=== PATIENT | female | born 2000 | race Two or more races ===

== ENCOUNTER → 2023-10-24 | Outpatient (CLI) | payer OTHER ==
[2023-10-24 14:27] LABS: HEMATOCRIT 39.3 % (36.0-47.0); HEMOGLOBIN 13.2 g/dl (12.0-15.5); MEAN CORPUSCULAR HEMOGLOBIN 28.8 pg (27.0-33.0); MEAN CORPUSCULAR HGB CONC 33.6 g/dl (32.0-36.5); MEAN CORPUSCULAR VOLUME 85.6 fl (80.0-96.0); PLATELET COUNT, AUTOMATED 298 10^3/uL (150-450); RED BLOOD COUNT 4.59 10^6/uL (4.00-5.40); WHITE BLOOD COUNT 9.9 10^3/uL (4.0-10.0)
[2023-10-24 14:48] LABS: HEMOGLOBIN A1c 5.2 % (4.0-6.0)
[2023-10-24 15:05] LABS: HIV 1&2 SCREEN NEGATIVE (NEGATIVE)
[2023-10-24 15:13] LABS: HEPATITIS C VIRUS ABY INDEX 0.04 INDEX (<0.8)
== END ==
LOC: M PLALAB 11:36
PROVIDERS: ATTEND Advanced Practice Midwife
DX: Z34.81 Encounter for supervision of other normal pregnancy, first trimester (principal)

== ENCOUNTER → 2023-11-23 | Outpatient (CLI) | payer OTHER | LOC: M WHC 10:24 | PROVIDERS: ATTEND Obstetrics & Gynecology | DX: Z34.92 Encounter for supervision of normal pregnancy, unspecified, second trimester (principal) ==

== ENCOUNTER → 2023-12-21 | Outpatient (CLI) | payer OTHER | LOC: M WHC 10:34 | PROVIDERS: ATTEND Obstetrics & Gynecology | DX: Z34.92 Encounter for supervision of normal pregnancy, unspecified, second trimester (principal); Z3A.19 19 weeks gestation of pregnancy ==

== ENCOUNTER → 2024-02-05 | Outpatient (CLI) | payer OTHER ==
[2024-02-05 19:37] LABS: HEMATOCRIT 34.2 % (36.0-47.0); HEMOGLOBIN 11.3 g/dl (12.0-15.5); MEAN CORPUSCULAR HEMOGLOBIN 29.9 pg (27.0-33.0); MEAN CORPUSCULAR VOLUME 90.5 fl (80.0-96.0); PLATELET COUNT, AUTOMATED 283 10^3/uL (150-450); RED BLOOD COUNT 3.78 10^6/uL (4.00-5.40); WHITE BLOOD COUNT 10.1 10^3/uL (4.0-10.0)
[2024-02-05 21:39] LABS: GC DNA AMPLIFICATION NEGATIVE (NEGATIVE)
== END ==
LOC: M WUC 14:32
PROVIDERS: ATTEND Advanced Practice Midwife
DX: Z34.92 Encounter for supervision of normal pregnancy, unspecified, second trimester (principal)

== ENCOUNTER → 2024-02-29 | Outpatient (CLI) | payer OTHER | LOC: M WHC 10:29 | PROVIDERS: ATTEND Advanced Practice Midwife | DX: Z34.83 Encounter for supervision of other normal pregnancy, third trimester (principal); Z3A.30 30 weeks gestation of pregnancy ==

== ENCOUNTER → 2024-04-10 | Outpatient (REF) | payer OTHER | LOC: M PLALAB 13:04 | PROVIDERS: ATTEND Advanced Practice Midwife | DX: Z3A.36 36 weeks gestation of pregnancy (principal) ==

== ENCOUNTER 2024-04-29 07:53 | Inpatient (IN) | payer OTHER ==
[~2024-04-29] VITALS: Ht 165.1 cm; Wt 86.2 kg
[2024-04-29] VITALS (14 sets, daily range): BP systolic 118–170; BP diastolic 56–99
[2024-04-29] MEDS: FENTANYL/ROPIVACAINE/NACL BAG 100 ML EPIDURAL SCH (00:26)
[2024-04-29] MEDS ORDERED: PRENTAB9 PO (08:12)
[2024-04-29] MEDS ORDERED: HOME MED LIST COMPLETE! XX SCH (08:45)
[2024-04-29] MEDS ORDERED: **PENDING PCN ENTRY XX SCH (09:00)
[2024-04-29 09:09] LABS: HEMATOCRIT 35.1 % (36.0-47.0); HEMOGLOBIN 12.2 g/dl (12.0-15.5); MEAN CORPUSCULAR HEMOGLOBIN 30.2 pg (27.0-33.0); MEAN CORPUSCULAR HGB CONC 34.8 g/dl (32.0-36.5); MEAN CORPUSCULAR VOLUME 86.9 fl (80.0-96.0); PLATELET COUNT, AUTOMATED 204 10^3/uL (150-450); RED BLOOD COUNT 4.04 10^6/uL (4.00-5.40); WHITE BLOOD COUNT 8.9 10^3/uL (4.0-10.0)
[2024-04-29] MEDS ORDERED: PENICILLIN G POTASSIUM 5 MU IV 5 MU in D5W MINI-BAG PLUS 100 ML IV STA (09:48)
[2024-04-29] MEDS ORDERED: OXYTOCIN INJ 10UNITS/ML 1ML VIAL IV PRN (09:50)
[2024-04-29] MEDS ORDERED: LR 1,000 ML IV SCH (09:50)
[2024-04-29] MEDS ORDERED: METHYLERGONOVINE MALEATE 0.2MG/ML 1ML VIAL IM PRN (09:50)
[2024-04-29] MEDS ORDERED: OXYTOCIN INJ 10UNITS/ML 1ML VIAL IM PRN (09:50)
[2024-04-29] MEDS: LR 1,000 ML IV SCH (09:50)
[2024-04-29] MEDS ORDERED: CARBOPROST TROMETHAMINE 250 MCG/ML AMP IM PRN (09:50)
[2024-04-29] MEDS ORDERED: TRANEXAMIC ACID INJection 1,000 MG in NS 100 ML IV PRN (09:50)
[2024-04-29] MEDS ORDERED: LIDOCAINE 1% MDV 20ML VIAL INFIL PRN (09:50)
[2024-04-29] MEDS ORDERED: OXYTOCIN DRIP 30 UNITS in IV 1 EA IV PRN (09:50)
[2024-04-29] MEDS ORDERED: OXYTOCIN DRIP 30 UNITS in IV 1 EA IV SCH (09:50)
[2024-04-29 10:06] LABS: HEPATITIS C VIRUS ABY INDEX < 0.02 INDEX (<0.8)
[2024-04-29] MEDS: LACTATED RINGER'S 1000 ML IV STA (10:18)
[2024-04-29] MEDS: miSOPROStol 50MCG 1/2 TABLET PO SCH (10:38)
[2024-04-29] MEDS ORDERED: PEN G POT 3,000,000 UNIT/50 ML 3,000,000 UNIT in IV 1 EA IV SCH (13:50)
[2024-04-29] MEDS: PENICILLIN G POTASSIUM 5 MU IV 5 MU in D5W MINI-BAG PLUS 100 ML IV STA (23:28)
[2024-04-29] MEDS ORDERED: ePHEDrine SULFATE 25 MG/5 ML(5MG/ML) SYRINGE IVP PRN (23:55)
[2024-04-29] MEDS ORDERED: NALOXONE INJ 0.4MG/1ML VIAL IV PRN (23:55)
[2024-04-29] MEDS ORDERED: ONDANSETRON 4MG 2ML VIAL IV PRN (23:55)
[2024-04-29] MEDS ORDERED: LR 500 ML IV PRN (23:55)
[2024-04-29] MEDS ORDERED: EPIDURAL/PCA KEYS XX PRN (23:55)
[2024-04-29] MEDS ORDERED: diphenhydrAMINE 50MG/ML VIAL IV PRN (23:55)
[2024-04-30] VITALS (17 sets, daily range): BP systolic 105–177; BP diastolic 55–116; TEMP 98.8; O2SAT 98–99
[2024-04-30 01:08] LABS: CORD GAS ABE A -6.2; CORD GAS HCO3 A 22.7 MMOL/L; CORD GAS O2 SAT A 75.6 %; CORD GAS PCO2 A 60.5 mmHg; CORD GAS PH A 7.192 UNITS; CORD GAS TCO2 A 24.6 MMOL/L
[2024-04-30 01:10] LABS: CORD GAS ABE V -5.6; CORD GAS HCO3 V 20.5 MMOL/L; CORD GAS O2 SAT V 84.8 %; CORD GAS PCO2 V 42.4 mmHg; CORD GAS PH V 7.303 UNITS; CORD GAS PO2 V 44.5 mmHg; CORD GAS SBC V 19.7 MMOL/L; CORD GAS TCO2 V 21.8 MMOL/L
[2024-04-30] MEDS ORDERED: ACETAMINOPHEN 500 MG TAB PO PRN (01:10)
[2024-04-30] MEDS ORDERED: IBUPROFEN 800 MG TAB PO PRN (01:10)
[2024-04-30] MEDS ORDERED: MOM 30ML SUSPENSION UDC PO PRN (01:10)
[2024-04-30] MEDS ORDERED: ANUSOL HC CREAM 30GM TOP PRN (01:10)
[2024-04-30] MEDS: OXYTOCIN DRIP 30 UNITS in IV 1 EA IV PRN (01:36)
[2024-04-30] MEDS ORDERED: PEN G POT 3,000,000 UNIT/50 ML 3,000,000 UNIT in IV 1 EA IV SCH (03:00)
[2024-04-30] MEDS: DOCUSATE SODIUM 100MG CAPSULE PO SCH (09:24)
[2024-04-30] MEDS: PRENATAL VITAMINS CHEWABLE TABLET PO SCH (09:24)
[2024-04-30] MEDS: DIBUCAINE 1% OINTMENT 30GM TOP PRN (20:58)
[2024-05-01 06:00] VITALS: BP 118/80; O2SAT 96
[2024-05-01] MEDS: RHO(D) IMMUNE GLOBULIN/MALTOSE 500MCG(2500IU)/2.2ML VIAL (WINRHO) IM SCH (15:28)
[2024-05-01 17:56] VITALS: BP 128/77; O2SAT 96
[2024-05-02] MEDS ORDERED: MEASLES,MUMPS,RUBELLA VACCINE INJ (MMR-II) SC.IMMUN ONE (09:00)
== END 2024-05-01 18:00 | disposition home or self-care (01) | DRG 807 ==
LOC: M LDI 07:53 → M OBS 04-30 03:09
PROVIDERS: ADMIT Obstetrics & Gynecology; ATTEND Obstetrics & Gynecology
PROC: 3E033VJ Introduction of Other Hormone into Peripheral Vein, Percutaneous Approach (ICD-10-PCS; 2024-04-29)
PROC: 3E0P7VZ Introduction of Hormone into Female Reproductive, Via Natural or Artificial Opening (ICD-10-PCS; 2024-04-29)
PROC: 10E0XZZ Delivery of Products of Conception, External Approach (ICD-10-PCS; principal; 2024-04-30)
PROC: 0HQ9XZZ Repair Perineum Skin, External Approach (ICD-10-PCS; 2024-04-30)
DX: O70.0 First degree perineal laceration during delivery (principal); Z37.0 Single live birth; Z3A.39 39 weeks gestation of pregnancy; O99.820 Streptococcus B carrier state complicating pregnancy

== ENCOUNTER → 2024-12-18 | Outpatient (REF) | payer OTHER ==
[~2024-12-18] MED LIST: PRENTAB9 PO
[2024-12-21 13:01] LABS: HPV APTIMA Not Detected (Not Detected)
== END ==
LOC: M SFHCWAGY 17:40
PROVIDERS: ATTEND Obstetrics & Gynecology
DX: Z01.419 Encounter for gynecological examination (general) (routine) without abnormal findings (principal)
CPT/HCPCS: 87624; G0123